=== PATIENT | female | born 1945 | race Caucasian/White ===

== ENCOUNTER 2016-10-13 10:46 | Emergency (ER) | payer MEDICARE, BC ==
[2016-10-13 11:11] VITALS: BP 140/71
--- NOTE | 2016-10-13 12:54 | UC ---
Conchita Soto Janilya, scribed for Arin Mendoza MD on 10/13/16 at 1102 . Complaint Female HPI - HPI Summary HPI Summary: A 71 y/o female came in to [facility] presenting w/ a gradual onset of intermittent urinary Sx for a few months. Pt reports mild abd area discomfort, bad odor of urine, lethargy, at some times urgency, at other times, frequency. Pt denies fever, n/v/d, dysuria, hematuria. No PMHx of diverticulitis. PMHx: 1. UTI last year, for which she took Cipro 2. IBS 3. Depression Of note, she went to pcp for cpe within past 2 months and had her RESEARCH AND EVALUATION ANALYST exam at that visit, Pt did not mention any of these sx and reports that exam was nml. denies any personal or FHx of breast/ovarian or other cancers. States she is UTD with colon cancer. denies melena/brbpr. She was started on cymbalta at this CPE visits. she did not notice improvement in her mood. thought fatigue was due to this. Caused constipation and she stopped it on her own and feels fine. she has not contacted pcp about med for depression and I enc her to do so. states that she always has bloating life long due to IBS and no different recently. She has been following good IBS diet. PSHx appendectomy, tubal ligation. Pt is unaccompanied. - History Of Current Complaint Stated Complaint: URINARY ISSUE Time Seen by Provider: 10/13/16 10:51 Hx Obtained From: Patient Onset/Duration: Gradual Onset, Lasting Days, Still Present Timing: Intermittent Severity Initially: Moderate Severity Currently: Moderate Aggravating Factor(s): Nothing Alleviating Factor(s): Nothing Associated Signs And Symptoms: Negative: Nausea, Vomiting(# Of Episodes =) - Allergies/Home Medications Allergies/Adverse Reactions: Allergies Allergy/AdvReac Type Severity Reaction Status Date / Time Adhesive Tape Allergy TEARS Verified 10/13/16 11:01 SKIN, SKIN ERUPTIONS, RASH, ITCHING Atorvastatin [From Lipitor] Allergy MUSCLE Verified 10/13/16 11:01 ACHES Codeine Allergy Unknown Verified 10/13/16 11:01 Reaction Details Ketorolac Tromethamine Allergy GI Upset Verified 10/13/16 11:01 [From Toradol] Procaine [From Novocain] Allergy HYPER, Verified 10/13/16 11:01 HEART POUNDING Propoxyphene [From Darvon] Allergy Unknown Verified 10/13/16 11:01 Reaction Details Tomato Allergy STOMACH Verified 10/13/16 11:01 PAIN AND DIARRHEA, ITCHING Anesthesia Allergy Severe Difficulty Uncoded 10/13/16 11:01 Breathing - R/T EPIDURAL TOO HIGH beans Allergy Headache Uncoded 10/13/16 11:01 BEEF, DAIRY, Allergy GI Uncoded 10/13/16 11:01 UPSET,IRRITABLE,SLEEPLESSNESS, ITCHING EGGPLANT AND PEPPERS Allergy GI, Uncoded 10/13/16 11:01 HEADACHE, ITCHING ENVIRONMENTAL/HAYFEVER Allergy ITCHY Uncoded 10/13/16 11:01 EYES, RUNNY NOSE ONIONS AND GARLIC Allergy AFFECTS GI Uncoded 10/13/16 11:01 TRACT, HEADACHE, ITCHING OPIATES Allergy SEVERE Uncoded 10/13/16 11:01 ITCHING PEANUTS, CASHEW, SOY, BONILLA Allergy GI Upset Uncoded 10/13/16 11:01 PRODUCTS POTATO Allergy INCREASE Uncoded 10/13/16 11:01 JOINT PAIN PMH/Surg Hx/FS Hx/Imm Hx Previously Healthy: Yes Endocrine History Of: Denies: Diabetes, Thyroid Disease Cardiovascular History Of: Denies: Hypertension, Pacemaker/ICD, Congestive Heart Failure, Deep Vein Thrombosis Respiratory History Of: Reports: Bronchitis, Pneumonia - once "a long time ago. " Denies: COPD, Asthma, Pulmonary Embolism GI/ History Of: Denies: Gastroesophageal Reflux, Ulcer, Gastrointestinal Bleed, Gall Bladder Disease, Kidney Stones, Renal Disease Neurological History Of: Reports: Migraine - HX OF 1-2 PER YEAR Denies: TIA, CVA, Dementia, Seizures Psychological History Of: Reports: Anxiety - ON MEDICATION, Depression - ON MEDICATION - NO PROBLEMS NOW Denies: Bipolar Disorder - Family hx., Schizophrenia Cancer History Of: Denies: Lung Cancer, Breast Cancer Other History Of: Negative For: Anticoagulant Therapy - not taking coumadin anymore - Surgical History Surgical History: Yes Surgery Procedure, Year, and Place: LEFT KNEE ARTHROSCOPY 1992, [facility] [place]. CSECTION WITH TUBAL LIGATION, 1975, [place]. 1984 OVARIAN CYSTECTOMY, [facility] [place]. 08/19/12 LEFT TOTAL HIP REPLACEMENT, [facility] [place]. 10/2013 RIGHT EYE CATARACT EXTRACTION WITH IOL. IMPLANT, [facility] left eye cataract - Family History Known Family History: Positive: Cardiac Disease - Social History Occupation: Retired Alcohol Use: Rare Substance Use Type: None Smoking Status (MU): Former Smoker Type: Cigarettes Amount Used/How Often: 1/2 PPD Length of Time of Smoking/Using Tobacco: 25 YEARS Have You Smoked in the Last Year: Yes When Did the Patient Quit Smoking/Using Tobacco: 04/2014 Household Exposure Type: Cigarettes - Immunization History Most Recent Influenza Vaccination: 2014 Most Recent Tetanus Shot: Info with Dr. Maradiaga office [phone] Most Recent Pneumonia Vaccination: within 5 years Review of Systems Constitutional: Other - lethargy Skin: Negative Eyes: Negative ENT: Negative Respiratory: Negative Cardiovascular: Negative Gastrointestinal: Abdominal Pain - abd discomfort Genitourinary: Negative - pt denies dysuria, hematuria, Frequency, Urgency Motor: Negative Neurovascular: Negative Musculoskeletal: Negative Neurological: Negative Psychological: Negative All Other Systems Reviewed And Are Negative: Yes Physical Exam Triage Information Reviewed: Yes Appearance: Well-Appearing Vital Signs: Initial Vital Signs Temp 99.4 F 10/13/16 11:03 Pulse 65 10/13/16 11:03 Resp 16 10/13/16 11:03 BP 140/71 10/13/16 11:03 Pulse Ox 95 10/13/16 11:03 Vital Signs Reviewed: Yes Eye Exam: Normal Eyes: Positive: Conjunctiva Clear ENT: Positive: Normal ENT inspection Dental Exam: Normal Neck: Positive: Supple, Nontender, No Lymphadenopathy Respiratory: Positive: Lungs clear, Normal breath sounds, No respiratory distress, No accessory muscle use Cardiovascular: Positive: RRR, No Murmur, Pulses Normal Abdomen Description: Positive: Nontender - very mild discomfort with deep RLQ palpation (h/o appendectomy per pt) and suprapubic area, no LLQ tenderness. no rebound/guarding., Soft. Negative: Bruit, CVA Tenderness (R), CVA Tenderness (L ), Distended, Hernia @, Splenomegaly Bowel Sounds: Positive: Present Musculoskeletal Exam: Normal Neurological Exam: Normal Psychological Exam: Normal Skin Exam: Normal Complaint Female Dx - Course Course Of Treatment: UDIP - nml. neg nitrates and leuks. SG 1.005. Will need pelvic imaging to r/o RESEARCH AND EVALUATION ANALYST pathology. discussed with pt in detail. reports previous appendectomy. denies h/o diverticulitis. - Differential Dx/Diagnosis Differential Diagnosis/HQI/PQRI: Ovarian Cyst, Urinary Tract Infection, Other - IBS, constipation, diverticulitis. Provider Diagnoses: RLQ abd pain, urinary frequency, IBS Discharge - Discharge Plan Condition: Stable Disposition: HOME Patient Education Materials: Abdominal Pain (ED) Referrals: Fe Maradiaga MD [Primary Care Provider] - 3 Days Additional Instructions: We have agreed to wait on the urine culture results before ordering the antibiotic, as the urine dip is nml and your symptoms are not convincing of a UTI at this time. Please call in 2-3 days for results. Also we discussed that you should have a pelvic ultrasound, and potentially further testing and evaluation by your PCP who does your RESEARCH AND EVALUATION ANALYST exams. We discussed the importance of ovary evaluation for the right lower abdominal pain. The documentation as recorded by the Conchita wilson Janilya accurately reflects the service I personally performed and the decisions made by me, Arin Mendoza MD.
== END 2016-10-13 12:31 | disposition home or self-care (01) ==
LOC: UCEAST 10:46
DX: R10.31 Right lower quadrant pain (principal); R35.0 Frequency of micturition; K58.9 Irritable bowel syndrome, unspecified; F41.9 Anxiety disorder, unspecified; F33.8 Other recurrent depressive disorders; G43.909 Migraine, unspecified, not intractable, without status migrainosus; Z87.891 Personal history of nicotine dependence; Z77.22 Contact with and (suspected) exposure to environmental tobacco smoke (acute) (chronic); Z88.8 Allergy status to other drugs, medicaments and biological substances; Z88.5 Allergy status to narcotic agent; Z88.4 Allergy status to anesthetic agent; Z91.018 Allergy to other foods; Z91.010 Allergy to peanuts; Z91.048 Other nonmedicinal substance allergy status; Z91.09 Other allergy status, other than to drugs and biological substances; Z87.440 Personal history of urinary (tract) infections
CPT/HCPCS: 81002; 87086; 99212; G0463